=== PATIENT | male | born 1990 | race Caucasian/White ===

== ENCOUNTER 2023-11-19 08:57 | Emergency (ER) | payer BC, OTHER ==
[~2023-11-19] VITALS: Ht 172.7 cm; Wt 80.3 kg
[2023-11-19 08:58] VITALS: BP 124/68; TEMP 97.3; O2SAT 96
[2023-11-19] MEDS ORDERED: BOOSTRIX VACCINE (TETANUS/DIPHTH/ACEL. PERTUSSIS) 0.5ML SYR IM.IMMUN ONE (09:40)
[2023-11-19] MEDS ORDERED: LIDOCAINE 1% MDV 20ML VIAL SC ONE (09:40)
[2023-11-19] MEDS ORDERED: AUGMENTIN 875 MG TAB PO ONE (09:40)
[2023-11-19] MEDS ORDERED: AMOX875T2 PO (10:43)
== END 2023-11-19 10:51 | disposition home or self-care (01) ==
LOC: EDBD 08:57 → M ED 08:57
DX: S01.419A Laceration without foreign body of unspecified cheek and temporomandibular area, initial encounter (principal); W54.0XXA Bitten by dog, initial encounter; Z88.2 Allergy status to sulfonamides; Z79.2 Long term (current) use of antibiotics; Y92.009 Unspecified place in unspecified non-institutional (private) residence as the place of occurrence of the external cause; Y93.89 Activity, other specified; Y99.9 Unspecified external cause status; Z23 Encounter for immunization